=== PATIENT | male | born 1935 | race African-American/Black ===

== ENCOUNTER 2017-05-29 23:47 | Inpatient (IN) | payer OTHER ==
[~2017-05-29] VITALS: Ht 165.1 cm; Wt 80.6 kg
[~2017-05-29 23:47] MED LIST: AMLODIPINE BESY10 MG PO; COMBIVENT RESPIM4 GM IH; DRISDOL50000 UNIT PO; FLOMAX0.4 MG PO; FUROSEMIDE20 MG PO; IRON325 MG PO; LEVEMIR FL100 UNIT/1 SC; LIPITOR80 MG PO; METOPROLOL TART50 MG PO; NOVOLOG 10100 UNITS/ SC; PLAVIX75 MG PO
[2017-05-30] VITALS (7 sets, daily range): BP systolic 112–138; BP diastolic 49–73
[2017-05-30 00:26] LABS: HEMATOCRIT 33.9 % (38.0-50.0); MCH 27.3 PG (29.0-34.0); MCHC 28.9 G/DL (30.0-36.0); MCV 94.4 FL (86-99); MEAN PLAT.VOLUME 11.5 uM^3 (9.0-12.4); PLATELET COUNT 110 K/uL (156-360); RBC DIS.WIDTH-SD 58.9 % (39-53); RED BLOOD COUNT 3.59 M/uL (4.00-5.50); WHITE BLOOD COUNT 6.8 K/uL (4.1-10.2)
[2017-05-30 00:36] LABS: CHLORIDE 103 mEq/L (99-109); POTASSIUM 2.8 mEq/L (3.7-5.4); SODIUM 139 mEq/L (136-147)
[2017-05-30 00:38] LABS: GLUCOSE 203 mg/dL (70-99)
[2017-05-30 00:39] LABS: ANION GAP 6 MEQ/L (2-14)
[2017-05-30 00:40] LABS: TOTAL BILIRUBIN 0.2 mg/dL (0.0-1.0)
[2017-05-30 00:42] LABS: ALKALINE PHOSPHATASE 95 IU/L (3-129); GFR ESTIMATE (CALCULATED) 20 mL/min/
[2017-05-30 00:43] LABS: UREA NITROGEN (BUN) 13 mg/dL (9-23)
[2017-05-30 00:45] LABS: LIPASE 23 U/L (1.0-51.0)
[2017-05-30] MEDS ORDERED: HUMALOG100 UNIT/1 SC ×4 (09:21→09:27)
[2017-05-30] MEDS ORDERED: ONE DAILY TABL1 EAC1 PO (09:29)
[2017-05-30] MEDS ORDERED: MULTIVITAMIN1 EAC2 PO (09:30)
[2017-05-30] MEDS ORDERED: REMERON15 M2 PO (09:30)
[2017-05-30] MEDS ORDERED: DESYREL100 MG PO (09:31)
[2017-05-30] MEDS ORDERED: PULMICORT0.25 MG/1 IH (09:32)
[2017-05-30] MEDS ORDERED: HEPARIN SO5000 UNIT3 SC (09:33)
[2017-05-30] MEDS ORDERED: KLOR-CON SPRIN10 MEQ PO (09:34)
[2017-05-30] MEDS ORDERED: PROTONIX20 MG PO (09:36)
[2017-05-30] MEDS ORDERED: NYSTATIN100000 UN1 PO (09:36)
[2017-05-30] MEDS ORDERED: ROCEPHIN 2 GM VI2 GM IM (09:39)
[2017-05-30] MEDS ORDERED: PROAIR HFA8.5 GM IH (09:43)
[2017-05-30 10:46] LABS: TROP-I INTERPRETATION NEGATIVE; TROPONIN-I 0.02 ng/mL (0.0-0.30)
[2017-05-30 11:43] LABS: POINT-OF-CARE METER ID UU13113774
[2017-05-30 13:33] LABS: ANION GAP 5 MEQ/L (2-14); CHLORIDE 105 MEQ/L (99-109); GFR ESTIMATE (CALCULATED) 21 mL/min/; GLUCOSE 158 mg/dL (70-99); POTASSIUM 2.9 MEQ/L (3.7-5.4); SAMPLE HEMOLYSIS CHECK 0; SAMPLE ICTERIC CHECK 0; SAMPLE LIPEMIA CHECK 0; SODIUM 141 MEQ/L (136-147); UREA NITROGEN (BUN) 15 mg/dL (9-23)
[2017-05-30 14:16] LABS: TROP-I INTERPRETATION NEGATIVE; TROPONIN-I 0.03 ng/mL (0.0-0.30)
[2017-05-30 16:15] LABS: C DIFF TOXIN POSITIVE (NEGATIVE)
[2017-05-30 16:18] LABS: POINT-OF-CARE METER ID UU13113774
[2017-05-30 16:19] LABS: PROBE CHECK PASS
[2017-05-30 16:23] LABS: INFLUENZA A VIRAL ANTIGEN NEGATIVE; INFLUENZA B VIRAL ANTIGEN NEGATIVE
[2017-05-30 17:40] LABS: MAGNESIUM 1.9 mg/dl (1.3-2.7)
[2017-05-30 19:00] LABS: MAGNESIUM 1.8 mg/dl (1.3-2.7)
[2017-05-30 21:09] LABS: POINT-OF-CARE METER ID UU13113774
[2017-05-30 23:32] LABS: TROP-I INTERPRETATION NEGATIVE; TROPONIN-I 0.03 ng/mL (0.0-0.30)
[2017-05-31] VITALS (8 sets, daily range): BP systolic 74–128; BP diastolic 00–72
[2017-05-31 06:03] LABS: MCH 28.2 PG (29.0-34.0); MCV 97.2 FL (86-99); MEAN PLAT.VOLUME 12.7 uM^3 (9.0-12.4); PLATELET COUNT 80 K/uL (156-360); RBC DIS.WIDTH-CV 17.2 % (11.8-14.6); RBC DIS.WIDTH-SD 61.7 % (39-53); RED BLOOD COUNT 3.19 M/uL (4.00-5.50); WHITE BLOOD COUNT 9.2 K/uL (4.1-10.2)
[2017-05-31 06:10] LABS: POINT-OF-CARE METER ID UU13113774
[2017-05-31 06:30] LABS: ANION GAP 6 MEQ/L (2-14); CHLORIDE 105 MEQ/L (99-109); GFR ESTIMATE (CALCULATED) 24 mL/min/; GLUCOSE 125 mg/dL (70-99); MAGNESIUM 1.8 mg/dl (1.3-2.7); SAMPLE HEMOLYSIS CHECK 0; SAMPLE ICTERIC CHECK 0; SAMPLE LIPEMIA CHECK 0; SODIUM 140 MEQ/L (136-147); UREA NITROGEN (BUN) 11 mg/dL (9-23)
[2017-05-31 06:31] LABS: POTASSIUM 3.6 MEQ/L (3.7-5.4)
[2017-05-31 09:09] LABS: BASE EXCESS 0.8 mEq/L (-3 to +3); BICARBONATE 30.6 mEq/L (22-26); CARBOXY HGB 2.5 % (0-5); METHEMOGLOBIN 1.7 % (0-1.5); PCO2 82 mm Hg (35-45); PO2 59 mm Hg (80-100)
[2017-05-31 09:11] LABS: COMMENTS - BLOOD GASES C+; DEVICE NC; FI02 2 %; SITE LR; TOTAL RESP RATE 12 resp/min; pH 7.18 (7.35-7.45)
[2017-05-31 10:47] LABS: BASE EXCESS 0.6 mEq/L (-3 to +3); BICARBONATE 30.2 mEq/L (22-26); PCO2 72 mm Hg (35-45); PO2 53 mm Hg (80-100); pH 7.23 (7.35-7.45)
[2017-05-31 10:48] LABS: COMMENTS - BLOOD GASES A+C+; DEVICE NC; O2 FLOW 3 L/MIN; SITE RR; TOTAL RESP RATE 20 resp/min
[2017-05-31 12:40] LABS: METH RESISTANT S AUREUS PCR NEGATIVE (NEGATIVE)
[2017-05-31 12:41] LABS: PROBE CHECK PASS; SPECIMEN PROCESSING CONTROL PASS
[2017-05-31 13:00] LABS: EOSINOPHIL (%) 0.7 % (0-5); EOSINOPHIL COUNT 0.1 K/uL (0-0.3); HEMATOCRIT 33.2 % (38.0-50.0); IMMATURE GRANULOCYTE (%) 0.3 % (0.0-0.7); INSTRUMENT ABS NEUTROPHIL CT 6.5 K/uL; LYMPHOCYTE COUNT 0.5 K/uL (1.0-2.8); MCH 28.5 PG (29.0-34.0); MCHC 29.2 G/DL (30.0-36.0); MCV 97.6 FL (86-99); MEAN PLAT.VOLUME 11.7 uM^3 (9.0-12.4); MONOCYTE (%) 7.3 % (3-12); MONOCYTE COUNT 0.6 K/uL (0-0.8); NEUTROPHIL (%) 84.4 % (45-76); NEUTROPHIL COUNT 6.5 K/uL (1.8-6.4); PLATELET COUNT 81 K/uL (156-360); RBC DIS.WIDTH-CV 17.4 % (11.8-14.6); RBC DIS.WIDTH-SD 62.3 % (39-53); WHITE BLOOD COUNT 7.7 K/uL (4.1-10.2)
[2017-05-31 13:05] LABS: POINT-OF-CARE METER ID UU14314082
[2017-05-31 13:32] LABS: BASE EXCESS 1.6 mEq/L (-3 to +3); BICARBONATE 29.8 mEq/L (22-26); CARBOXY HGB 2.3 % (0-5); METHEMOGLOBIN 1.5 % (0-1.5); PCO2 68 mm Hg (35-45); PO2 60 mm Hg (80-100); pH 7.25 (7.35-7.45)
[2017-05-31 13:33] LABS: DEVICE HEATED HIGH FLOW CAN; FI02 35 %; O2 FLOW 40 L/MIN; SITE RR
[2017-05-31 13:34] LABS: TOTAL RESP RATE 18 resp/min
[2017-05-31 13:39] LABS: ALKALINE PHOSPHATASE 79 IU/L (3-129); ANION GAP 7 MEQ/L (2-14); CHLORIDE 109 MEQ/L (99-109); GFR ESTIMATE (CALCULATED) 21 mL/min/; GLUCOSE 103 mg/dL (70-99); MAGNESIUM 1.8 mg/dl (1.3-2.7); POTASSIUM 3.8 MEQ/L (3.7-5.4); SAMPLE HEMOLYSIS CHECK 0; SAMPLE ICTERIC CHECK 0; SAMPLE LIPEMIA CHECK 0; SODIUM 143 MEQ/L (136-147); TOTAL BILIRUBIN 0.3 MG/DL (0.0-1.0); UREA NITROGEN (BUN) 13 mg/dL (9-23)
[2017-05-31 17:45] LABS: Estimated Average Glucose 154 mg/dL (70-123)
[2017-05-31 17:52] LABS: POINT-OF-CARE METER ID UU14314082
[2017-06-01] VITALS (18 sets, daily range): BP systolic 77–151; BP diastolic 41–127
[2017-06-01 00:05] LABS: POINT-OF-CARE METER ID UU14314082
[2017-06-01 04:51] LABS: HEMATOCRIT 31.7 % (38.0-50.0); MCH 27.7 PG (29.0-34.0); MCV 95.5 FL (86-99); MEAN PLAT.VOLUME 12.8 uM^3 (9.0-12.4); PLATELET COUNT 91 K/uL (156-360); RBC DIS.WIDTH-CV 17.1 % (11.8-14.6); RBC DIS.WIDTH-SD 59.4 % (39-53); RED BLOOD COUNT 3.32 M/uL (4.00-5.50); WHITE BLOOD COUNT 6.2 K/uL (4.1-10.2)
[2017-06-01 05:11] LABS: CHLORIDE 108 mEq/L (99-109); POTASSIUM 3.2 mEq/L (3.7-5.4); SODIUM 144 mEq/L (136-147)
[2017-06-01 05:13] LABS: CHLORIDE 110 mEq/L (99-109); POTASSIUM 3.2 mEq/L (3.7-5.4); SODIUM 142 mEq/L (136-147)
[2017-06-01 05:14] LABS: MAGNESIUM 1.7 mg/dL (1.3-2.7)
[2017-06-01 05:15] LABS: ANION GAP 10 MEQ/L (2-14); GLUCOSE 164 mg/dL (70-99)
[2017-06-01 05:16] LABS: TOTAL BILIRUBIN 0.2 mg/dL (0.0-1.0)
[2017-06-01 05:17] LABS: ALKALINE PHOSPHATASE 82 IU/L (3-129); ANION GAP 9 MEQ/L (2-14); GFR ESTIMATE (CALCULATED) 18 mL/min/
[2017-06-01 05:18] LABS: UREA NITROGEN (BUN) 17 mg/dL (9-23)
[2017-06-01 05:19] LABS: GFR ESTIMATE (CALCULATED) 18 mL/min/
[2017-06-01 05:20] LABS: GLUCOSE 166 mg/dL (70-99); UREA NITROGEN (BUN) 17 mg/dL (9-23)
[2017-06-01 05:21] LABS: BASE EXCESS 0 mEq/L (-3 to +3); BICARBONATE 28.5 mEq/L (22-26); CARBOXY HGB 2.2 % (0-5); METHEMOGLOBIN 1.5 % (0-1.5); PCO2 68 mm Hg (35-45); PO2 55 mm Hg (80-100)
[2017-06-01 05:22] LABS: COMMENTS - BLOOD GASES C+A+; DEVICE HFNC; FI02 40 %; O2 FLOW 40 L/MIN; SITE LR; pH 7.23 (7.35-7.45)
[2017-06-01 05:35] LABS: POINT-OF-CARE METER ID UU13113748
[2017-06-01 05:48] LABS: EOSINOPHIL (%) 1.3 % (0-5); EOSINOPHIL COUNT 0.1 K/uL (0-0.3); IMMATURE GRANULOCYTE (%) 0.5 % (0.0-0.7); LYMPHOCYTE COUNT 0.3 K/uL (1.0-2.8); MONOCYTE (%) 11.3 % (3-12); MONOCYTE COUNT 0.7 K/uL (0-0.8); NEUTROPHIL (%) 81.1 % (45-76)
[2017-06-01 11:17] LABS: HBSG INDEX 0.17
[2017-06-01 12:28] LABS: POINT-OF-CARE METER ID UU13113748
[2017-06-01 17:57] LABS: POINT-OF-CARE METER ID UU14314082
[2017-06-01 22:49] LABS: BASE EXCESS -0.2 mEq/L (-3 to +3); BICARBONATE 26.3 mEq/L (22-26); COMMENTS - BLOOD GASES A+C+; DEVICE HHFNC; FI02 40 %; METHEMOGLOBIN 2.3 % (0-1.5); O2 FLOW 70 L/MIN; PCO2 51 mm Hg (35-45); PO2 70 mm Hg (80-100); SITE RR; TOTAL RESP RATE 10 resp/min; pH 7.32 (7.35-7.45)
[2017-06-02] VITALS (24 sets, daily range): BP systolic 87–129; BP diastolic 57–87
[2017-06-02 00:25] LABS: POINT-OF-CARE METER ID UU14314082
[2017-06-02 04:39] LABS: CHLORIDE 108 mEq/L (99-109); POTASSIUM 2.9 mEq/L (3.7-5.4); SODIUM 142 mEq/L (136-147)
[2017-06-02 04:40] LABS: MAGNESIUM 1.6 mg/dL (1.3-2.7)
[2017-06-02 04:42] LABS: GLUCOSE 141 mg/dL (70-99)
[2017-06-02 04:43] LABS: ANION GAP 12 MEQ/L (2-14)
[2017-06-02 04:45] LABS: GFR ESTIMATE (CALCULATED) 14 mL/min/
[2017-06-02 04:46] LABS: UREA NITROGEN (BUN) 20 mg/dL (9-23)
[2017-06-02 05:52] LABS: POINT-OF-CARE METER ID UU14162636
[2017-06-02 11:32] LABS: UR CREATININE CONCENTRATION 80.5 MG/DL
[2017-06-02 12:03] LABS: POINT-OF-CARE METER ID UU13113731
[2017-06-02 17:26] LABS: IRON 20 MCG/DL (35-150)
[2017-06-02 18:12] LABS: POINT-OF-CARE METER ID UU14314082
[2017-06-02 23:49] LABS: POINT-OF-CARE METER ID UU13113748
[2017-06-03] VITALS (26 sets, daily range): BP systolic 71–134; BP diastolic 48–84
[2017-06-03 05:20] LABS: EOSINOPHIL (%) 0.4 % (0-5); HEMATOCRIT 28.5 % (38.0-50.0); IMMATURE GRANULOCYTE (%) 0.2 % (0.0-0.7); INSTRUMENT ABS NEUTROPHIL CT 4.1 K/uL; LYMPHOCYTE COUNT 0.4 K/uL (1.0-2.8); MCH 27.1 PG (29.0-34.0); MCHC 28.8 G/DL (30.0-36.0); MCV 94.1 FL (86-99); MONOCYTE (%) 11.1 % (3-12); MONOCYTE COUNT 0.6 K/uL (0-0.8); NEUTROPHIL (%) 80.2 % (45-76); NEUTROPHIL COUNT 4.1 K/uL (1.8-6.4); PLATELET COUNT 78 K/uL (156-360); RBC DIS.WIDTH-CV 17.2 % (11.8-14.6); RBC DIS.WIDTH-SD 58.9 % (39-53); RED BLOOD COUNT 3.03 M/uL (4.00-5.50); WHITE BLOOD COUNT 5.1 K/uL (4.1-10.2)
[2017-06-03 05:52] LABS: ANION GAP 7 MEQ/L (2-14); CHLORIDE 109 MEQ/L (99-109); GFR ESTIMATE (CALCULATED) 26 mL/min/; GLUCOSE 114 mg/dL (70-99); POTASSIUM 3.1 MEQ/L (3.7-5.4); SAMPLE HEMOLYSIS CHECK 0; SAMPLE ICTERIC CHECK 0; SAMPLE LIPEMIA CHECK 0; SODIUM 140 MEQ/L (136-147); UREA NITROGEN (BUN) 11 mg/dL (9-23)
[2017-06-03 05:54] LABS: MAGNESIUM 2.1 mg/dl (1.3-2.7)
[2017-06-03 06:23] LABS: POINT-OF-CARE METER ID UU14314082
[2017-06-03 11:49] LABS: POINT-OF-CARE METER ID UU13113803
[2017-06-03 17:24] LABS: POINT-OF-CARE METER ID UU13113803
[2017-06-03 17:28] LABS: ANION GAP 6 MEQ/L (2-14); CHLORIDE 108 MEQ/L (99-109); GFR ESTIMATE (CALCULATED) 22 mL/min/; SAMPLE HEMOLYSIS CHECK 0; SAMPLE ICTERIC CHECK 0; SAMPLE LIPEMIA CHECK 0; SODIUM 138 MEQ/L (136-147); UREA NITROGEN (BUN) 14 mg/dL (9-23)
[2017-06-03 17:29] LABS: GLUCOSE 172 mg/dL (70-99)
[2017-06-04] VITALS (23 sets, daily range): BP systolic 74–123; BP diastolic 48–81
[2017-06-04 00:34] LABS: POINT-OF-CARE METER ID UU14314082; POINT-OF-CARE USER ID PHATLC
[2017-06-04 05:22] LABS: POINT-OF-CARE METER ID UU14174217; POINT-OF-CARE USER ID PHATLC
[2017-06-04 05:31] LABS: EOSINOPHIL (%) 0.7 % (0-5); EOSINOPHIL COUNT 0.1 K/uL (0-0.3); HEMATOCRIT 32.6 % (38.0-50.0); IMMATURE GRANULOCYTE (%) 0.4 % (0.0-0.7); INSTRUMENT ABS NEUTROPHIL CT 6.3 K/uL; LYMPHOCYTE COUNT 0.3 K/uL (1.0-2.8); MCH 27.1 PG (29.0-34.0); MCHC 28.2 G/DL (30.0-36.0); MCV 96.2 FL (86-99); MEAN PLAT.VOLUME 11.5 uM^3 (9.0-12.4); MONOCYTE (%) 10.5 % (3-12); MONOCYTE COUNT 0.8 K/uL (0-0.8); NEUTROPHIL (%) 83.6 % (45-76); NEUTROPHIL COUNT 6.3 K/uL (1.8-6.4); RBC DIS.WIDTH-CV 17.3 % (11.8-14.6); RBC DIS.WIDTH-SD 61.1 % (39-53); RED BLOOD COUNT 3.39 M/uL (4.00-5.50); WHITE BLOOD COUNT 7.5 K/uL (4.1-10.2)
[2017-06-04 05:52] LABS: PLATELET COUNT 116 K/uL (156-360)
[2017-06-04 05:58] LABS: ANION GAP 9 MEQ/L (2-14); CHLORIDE 109 MEQ/L (99-109); GLUCOSE 151 mg/dL (70-99); MAGNESIUM 2.1 mg/dl (1.3-2.7); POTASSIUM 3.7 MEQ/L (3.7-5.4); SAMPLE HEMOLYSIS CHECK 0; SAMPLE ICTERIC CHECK 0; SAMPLE LIPEMIA CHECK 0; SODIUM 140 MEQ/L (136-147); UREA NITROGEN (BUN) 16 mg/dL (9-23)
[2017-06-04 06:01] LABS: GFR ESTIMATE (CALCULATED) 17 mL/min/
[2017-06-04 14:04] LABS: POINT-OF-CARE METER ID UU13113731
[2017-06-04 17:55] LABS: POINT-OF-CARE METER ID UU13113731
[2017-06-04 22:45] LABS: POINT-OF-CARE METER ID UU13113731; POINT-OF-CARE USER ID PHATLC
[2017-06-05] VITALS (18 sets, daily range): BP systolic 76–149; BP diastolic 26–77
[2017-06-05 00:30] LABS: POINT-OF-CARE METER ID UU13113731
[2017-06-05 05:02] LABS: EOSINOPHIL (%) 0 % (0-5); HEMATOCRIT 31.4 % (38.0-50.0); IMMATURE GRANULOCYTE (%) 0.3 % (0.0-0.7); INSTRUMENT ABS NEUTROPHIL CT 5.2 K/uL; LYMPHOCYTE COUNT 0.2 K/uL (1.0-2.8); MCH 27.6 PG (29.0-34.0); MCV 95.2 FL (86-99); MEAN PLAT.VOLUME 11.1 uM^3 (9.0-12.4); MONOCYTE COUNT 0.5 K/uL (0-0.8); NEUTROPHIL (%) 87.4 % (45-76); NEUTROPHIL COUNT 5.2 K/uL (1.8-6.4); PLATELET COUNT 101 K/uL (156-360); RBC DIS.WIDTH-CV 17.5 % (11.8-14.6); RBC DIS.WIDTH-SD 61.1 % (39-53); WHITE BLOOD COUNT 5.9 K/uL (4.1-10.2)
[2017-06-05 05:16] LABS: CHLORIDE 107 mEq/L (99-109); POTASSIUM 3.5 mEq/L (3.7-5.4)
[2017-06-05 05:17] LABS: SODIUM 141 mEq/L (136-147)
[2017-06-05 05:19] LABS: GLUCOSE 145 mg/dL (70-99)
[2017-06-05 05:20] LABS: ANION GAP 10 MEQ/L (2-14)
[2017-06-05 05:22] LABS: GFR ESTIMATE (CALCULATED) 20 mL/min/
[2017-06-05 05:23] LABS: UREA NITROGEN (BUN) 12 mg/dL (9-23)
[2017-06-05 05:25] LABS: MAGNESIUM 2.1 mg/dL (1.3-2.7)
[2017-06-05 05:52] LABS: POINT-OF-CARE METER ID UU14174217; POINT-OF-CARE USER ID PHATLC
[2017-06-05 12:06] LABS: POINT-OF-CARE METER ID UU14174217
[2017-06-05 18:18] LABS: POINT-OF-CARE METER ID UU14162636
[2017-06-06] VITALS (25 sets, daily range): BP systolic 61–101; BP diastolic 38–91
[2017-06-06 00:55] LABS: POINT-OF-CARE METER ID UU14174217
[2017-06-06 05:38] LABS: EOSINOPHIL (%) 0 % (0-5); HEMATOCRIT 34.4 % (38.0-50.0); IMMATURE GRANULOCYTE (%) 0.3 % (0.0-0.7); INSTRUMENT ABS NEUTROPHIL CT 5.3 K/uL; LYMPHOCYTE COUNT 0.2 K/uL (1.0-2.8); MCHC 28.2 G/DL (30.0-36.0); MCV 99.1 FL (86-99); MEAN PLAT.VOLUME 12.2 uM^3 (9.0-12.4); MONOCYTE (%) 10.5 % (3-12); MONOCYTE COUNT 0.7 K/uL (0-0.8); NEUTROPHIL (%) 85.3 % (45-76); NEUTROPHIL COUNT 5.3 K/uL (1.8-6.4); PLATELET COUNT 129 K/uL (156-360); RBC DIS.WIDTH-CV 17.9 % (11.8-14.6); RBC DIS.WIDTH-SD 65.6 % (39-53); RED BLOOD COUNT 3.47 M/uL (4.00-5.50); WHITE BLOOD COUNT 6.2 K/uL (4.1-10.2)
[2017-06-06 06:10] LABS: ANION GAP 12 MEQ/L (2-14); CHLORIDE 110 MEQ/L (99-109); GFR ESTIMATE (CALCULATED) 15 mL/min/; GLUCOSE 126 mg/dL (70-99); MAGNESIUM 2.1 mg/dl (1.3-2.7); POTASSIUM 3.2 MEQ/L (3.7-5.4); SAMPLE HEMOLYSIS CHECK 0; SAMPLE ICTERIC CHECK 0; SAMPLE LIPEMIA CHECK 0; SODIUM 142 MEQ/L (136-147); UREA NITROGEN (BUN) 19 mg/dL (9-23)
[2017-06-06 06:46] LABS: POINT-OF-CARE METER ID UU14208751
[2017-06-06 12:39] LABS: POINT-OF-CARE METER ID UU14208751
[2017-06-06 17:59] LABS: POINT-OF-CARE METER ID UU13113731
[2017-06-07] VITALS (21 sets, daily range): BP systolic 70–95; BP diastolic 43–60
[2017-06-07 00:43] LABS: POINT-OF-CARE METER ID UU14208751
[2017-06-07 05:01] LABS: EOSINOPHIL (%) 0 % (0-5); HEMATOCRIT 33.4 % (38.0-50.0); IMMATURE GRANULOCYTE (%) 0.5 % (0.0-0.7); INSTRUMENT ABS NEUTROPHIL CT 5.8 K/uL; LYMPHOCYTE COUNT 0.2 K/uL (1.0-2.8); MCH 27.4 PG (29.0-34.0); MCHC 27.5 G/DL (30.0-36.0); MCV 99.4 FL (86-99); MEAN PLAT.VOLUME 11.9 uM^3 (9.0-12.4); MONOCYTE (%) 7.8 % (3-12); MONOCYTE COUNT 0.5 K/uL (0-0.8); NEUTROPHIL (%) 88.7 % (45-76); NEUTROPHIL COUNT 5.8 K/uL (1.8-6.4); NRBC (%) 0.5 /100 WBC (0-0); RBC DIS.WIDTH-CV 17.8 % (11.8-14.6); RBC DIS.WIDTH-SD 65.6 % (39-53); RED BLOOD COUNT 3.36 M/uL (4.00-5.50); WHITE BLOOD COUNT 6.6 K/uL (4.1-10.2)
[2017-06-07 05:02] LABS: PLATELET COUNT 170 K/uL (156-360)
[2017-06-07 05:19] LABS: MAGNESIUM 2.2 mg/dL (1.3-2.7)
[2017-06-07 06:16] LABS: POINT-OF-CARE METER ID UU14208751
[2017-06-07 07:04] LABS: CHLORIDE 108 mEq/L (99-109); POTASSIUM 4.2 mEq/L (3.7-5.4); SODIUM 142 mEq/L (136-147)
[2017-06-07 07:07] LABS: GLUCOSE 168 mg/dL (70-99)
[2017-06-07 07:08] LABS: ANION GAP 16 MEQ/L (2-14)
[2017-06-07 07:09] LABS: TOTAL BILIRUBIN 0.2 mg/dL (0.0-1.0)
[2017-06-07 07:10] LABS: ALKALINE PHOSPHATASE 62 IU/L (3-129); GFR ESTIMATE (CALCULATED) 12 mL/min/
[2017-06-07 07:15] LABS: UREA NITROGEN (BUN) 31 mg/dL (9-23)
[2017-06-07 08:21] LABS: BICARBONATE 21.9 mEq/L (22-26); CARBOXY HGB 1.9 % (0-5); METHEMOGLOBIN 1.5 % (0-1.5); PO2 67 mm Hg (80-100)
[2017-06-07 08:25] LABS: COMMENTS - BLOOD GASES C+; DEVICE CAM; O2 FLOW 15 L/MIN; PCO2 112 mm Hg (35-45); SITE LR
[2017-06-07 08:26] LABS: FI02 100 %; TOTAL RESP RATE 24 resp/min
[2017-06-07 12:17] LABS: POINT-OF-CARE METER ID UU13113803
[2017-06-07 17:23] LABS: POINT-OF-CARE METER ID UU13113803
[2017-06-07 23:45] LABS: POINT-OF-CARE METER ID UU14314083
[2017-06-08] VITALS (15 sets, daily range): BP systolic 73–117; BP diastolic 48–104
[2017-06-08 05:41] LABS: EOSINOPHIL (%) 0 % (0-5); IMMATURE GRANULOCYTE (%) 0.5 % (0.0-0.7); IMMATURE GRANULOCYTE COUNT 0.1 K/uL; INSTRUMENT ABS NEUTROPHIL CT 9.3 K/uL; LYMPHOCYTE COUNT 0.2 K/uL (1.0-2.8); MCH 28.1 PG (29.0-34.0); MCHC 28.4 G/DL (30.0-36.0); MEAN PLAT.VOLUME 11.5 uM^3 (9.0-12.4); MONOCYTE (%) 10.8 % (3-12); MONOCYTE COUNT 1.2 K/uL (0-0.8); NEUTROPHIL (%) 86.5 % (45-76); NEUTROPHIL COUNT 9.3 K/uL (1.8-6.4); NRBC (%) 0.8 /100 WBC (0-0); PLATELET COUNT 220 K/uL (156-360); RBC DIS.WIDTH-SD 65.8 % (39-53); RED BLOOD COUNT 3.13 M/uL (4.00-5.50); WHITE BLOOD COUNT 10.7 K/uL (4.1-10.2)
[2017-06-08 06:19] LABS: ANION GAP 11 MEQ/L (2-14); CHLORIDE 106 MEQ/L (99-109); GFR ESTIMATE (CALCULATED) 11 mL/min/; GLUCOSE 142 mg/dL (70-99); SAMPLE HEMOLYSIS CHECK 0; SAMPLE ICTERIC CHECK 0; SAMPLE LIPEMIA CHECK 0; SODIUM 139 MEQ/L (136-147); UREA NITROGEN (BUN) 41 mg/dL (9-23)
[2017-06-08 06:21] LABS: POTASSIUM 5.5 MEQ/L (3.7-5.4)
[2017-06-08 14:10] LABS: POINT-OF-CARE METER ID UU14174217
== END 2017-06-08 18:01 | DRG 871 ==
LOC: EME 23:47 → EDOF 05-30 03:58 → ENRESERV 05-30 04:01 → EDOF 05-30 09:03 → 4WEST 05-30 09:03 → 5EAST 05-30 09:03 → EDOF 05-30 09:40 → 5EAST 05-30 10:49 → ENRESERV 05-31 09:22 → 4WEST 05-31 10:31
PROVIDERS: Emergency Medicine; Hospitalist; Internal Medicine; Internal Medicine Critical Care Medicine; Internal Medicine Nephrology; Obstetrics & Gynecology; Specialist
PROC: 02HV33Z Insertion of Infusion Device into Superior Vena Cava, Percutaneous Approach (ICD-10-PCS; principal; 2017-05-30)
PROC: 5A1D70Z Performance of Urinary Filtration, Intermittent, Less than 6 Hours Per Day (ICD-10-PCS; principal; 2017-05-30)
DX: A41.9 Sepsis, unspecified organism (principal); A04.71 Enterocolitis due to Clostridium difficile, recurrent; E87.6 Hypokalemia; E78.5 Hyperlipidemia, unspecified; E11.22 Type 2 diabetes mellitus with diabetic chronic kidney disease; N18.6 End stage renal disease; I13.2 Hypertensive heart and chronic kidney disease with heart failure and with stage 5 chronic kidney disease, or end stage renal disease; Z99.2 Dependence on renal dialysis; Z89.421 Acquired absence of other right toe(s); J44.0 Chronic obstructive pulmonary disease with (acute) lower respiratory infection; J18.9 Pneumonia, unspecified organism; I50.9 Heart failure, unspecified; D69.6 Thrombocytopenia, unspecified; Z66 Do not resuscitate; I95.9 Hypotension, unspecified; N40.0 Benign prostatic hyperplasia without lower urinary tract symptoms; J96.21 Acute and chronic respiratory failure with hypoxia; J96.22 Acute and chronic respiratory failure with hypercapnia; K56.7 Ileus, unspecified; Z87.891 Personal history of nicotine dependence; F03.90 Unspecified dementia, unspecified severity, without behavioral disturbance, psychotic disturbance, mood disturbance, and anxiety; F09 Unspecified mental disorder due to known physiological condition; E87.2 Acidosis; Z99.81 Dependence on supplemental oxygen; R64 Cachexia; D63.1 Anemia in chronic kidney disease; E43 Unspecified severe protein-calorie malnutrition
CPT/HCPCS: 36600; 71010; 71260; 74000; 74020; 74176; 80048; 80048 91; 80053; 80069; 82570; 82607; 82728; 82746; 82803; 82948; 83036; 83540; 83605; 83690; 83735; 83880; 84100; 84133; 84466; 84484; 85025; 85027; 85651; 87040; 87070; 87205; 87340; 87449; 87493; 87502; 87506; 87641; 93005; 93306; 94640; 94640 76; 94660; 94760; 94799; 95819; 97530 GO; 99202; 99281; 99285; C1751; J0456; J0881; J1160; J1265; J1644; J1815; J1940; J2370; J2543; J2997; J3010; J3370; J3475; J3480; J7030; J7040; J7050; P9047; S0030